=== PATIENT | male | born 1975 | race Caucasian/White ===

== ENCOUNTER 2016-06-08 09:47 | Emergency (ER) | payer SELFPAY ==
--- NOTE | 2016-06-10 16:08 | ER ---
ADMIT: 06/08/2016 RM/LOC: ER [facility] MR#: [id number] [address] [facility] [address] [place] [id number] [address] [facility] [address] [place] [id number] Emergency Room Report SEX: M AGE: 40 : 1975 DATE: 06/08/2016 TIME: 0947 hours. Please refer to my T-sheet for complete H and P. HISTORY OF PRESENT ILLNESS: Briefly, the patient is a 40-year-old, who comes in with tenderness and swelling in his testicles. It has been there for 2-3 weeks. Denies any trauma. No other abnormalities. He says it is tender, rates it 6/10 and he is just wondering what it is. He takes no medications. PHYSICAL EXAMINATION: VITAL SIGNS: Vital signs are stable. HEENT: Grossly normal. : Circumcised male with a little bit of induration in the skin. It does cross midline to the right and left side of the shaft and kind of goes more proximally. There is a little bit induration at the base of the shaft, where he had tried to squeeze it. EMERGENCY DEPARTMENT COURSE: I did anesthetize the area with 2 mL lidocaine with epi. I then used an 18-gauge needle, was unable to get any fluid back at this point. I did a testicular ultrasound which revealed a large area of soft tissue swelling. No fluid or abscess. Etiology is uncertain. There is definitely a scrotal mass, does not seem to connect to the testicles. No torsion or other abnormalities. At this point, I talked to Dr. Wang. We are going to place him on antibiotics and Dr. Wang will see him in the clinic. ASSESSMENT: Scrotal mass. PLAN: Tylenol and Motrin for pain. Cipro 500 b.i.d. for 7 days. Bactrim DS b.i.d. for [address] days. Follow up with Dr. Wang, call them and schedule this week. Return if worse. Rd Padilla MD/ magdy JOB #: [id number] CC: Rd Padilla MD, Attending Physician Jose Luis Wang MD, Family Physician Jose Luis Wang MD
== END 2016-06-08 11:50 | disposition home or self-care (01) ==
LOC: ER 09:47
DX: N50.89 Other specified disorders of the male genital organs (principal); F17.210 Nicotine dependence, cigarettes, uncomplicated; Z86.718 Personal history of other venous thrombosis and embolism; Z79.01 Long term (current) use of anticoagulants